=== PATIENT | female | born 1945 | race Caucasian/White ===

== ENCOUNTER 2016-08-20 18:35 | Observation (INO) | payer MEDICARE, BC, OTHER ==
[~2016-08-20] VITALS: Ht 157.5 cm; Wt 65.8 kg
[~2016-08-20 18:35] MED LIST: ACETAMINOPHEN W1 TA6 PO; CLARITIN 1010 MG/TAB PO; FLONASEALLERGY NS; HYZAAR 50-12.1 UDTAB PO; INDERAL 10MG10 MG PO; LISINOPRIL; MIRALAX PA17 GM/Dose PO; PRILOSEC 20MG20 MG PO; PRINZIDE 12.5 M1 TAB PO; ZYLOPRIM 100MG100 MG PO
[2016-08-20] MEDS ORDERED: THEO-24 30300 MG/CAP PO (18:52)
[2016-08-20 19:12] LABS: BASO # 0.1 (0.0-0.2); BASO % 0.7 % (0.0-2.0); EOS # 0.6 (0.0-0.7); EOS % 8.2 % (0-4.0); GRAN % 54.9 % (42.2-75.2); HEMATOCRIT 40.1 % (37.0-47.0); HEMOGLOBIN 13.8 g/dl (12.5-16.0); LYMPH # 1.9 (1.2-3.4); LYMPH % 26.3 % (20.0-51.0); MEAN CELL VOLUME 84 fl (80.0-100.0); MEAN CORPUSCULAR HEMOGLOBIN 29 pg (27.0-31.0); MEAN CORPUSCULAR HGB CONC 34 g/dl (33.0-37.0); MEAN PLATELET VOLUME 9.9 fl (7.4-10.4); MONO # 0.7 (0.1-0.6); MONO % 9.6 % (1.7-9.3); PLATELET COUNT 185 K/mm3 (130-400); RED BLOOD COUNT 4.76 M/mm3 (4.10-5.30); WHITE BLOOD COUNT 7.3 K/mm3 (4.8-10.8)
[2016-08-20 19:22] LABS: ADJUSTED CALCIUM 9.6 mg/dL (8.4-10.2); ALANINE AMINOTRANSFERASE 32 U/L (9-52); ALBUMIN 4.4 gm/dL (3.5-5.0); ALKALINE PHOSPHATASE 97 U/L (50-136); ANION GAP 12 mmol/L (7-16); BILIRUBIN,TOTAL 1.2 mg/dL (0.0-1.0); BLOOD UREA NITROGEN 23 mg/dL (7-17); CALCIUM 9.9 mg/dL (8.4-10.2); CARBON DIOXIDE 28 mmol/L (22-30); CHLORIDE 95 mmol/L (98-107); CREATININE, serum 1.01 mg/dL (0.52-1.25); GLUCOSE 104 mg/dL (74-106); POTASSIUM 3.5 mmol/L (3.4-5.0); SODIUM 135 mmol/L (137-145); TOTAL PROTEIN 7.9 gm/dL (6.4-8.2)
[2016-08-20 19:34] LABS: B-TYPE NATRIURETIC PEPTIDE 69 pg/mL (0-125); TROPONIN-I < 0.012 ng/mL (0.000-0.034)
[2016-08-20 20:12] LABS: THEOPHYLLINE 5.9 ug/mL (10.0-20.0)
[2016-08-21] VITALS (7 sets, daily range): BP systolic 119–155; BP diastolic 58–75; PULSE 71–125; TEMP 97.5–98.4
[2016-08-21 00:53] LABS: MAGNESIUM 1.7 mg/dL (1.6-2.3)
[2016-08-21 07:55] LABS: HEMOGLOBIN 12.2 g/dl (12.5-16.0); MEAN CELL VOLUME 84 fl (80.0-100.0); MEAN CORPUSCULAR HEMOGLOBIN 29 pg (27.0-31.0); MEAN CORPUSCULAR HGB CONC 35 g/dl (33.0-37.0); PLATELET COUNT 176 K/mm3 (130-400); RED BLOOD COUNT 4.18 M/mm3 (4.10-5.30); REDCELL DISTRIBUTION WIDTH-CV 13.1 % (11.5-14.5); WHITE BLOOD COUNT 4.7 K/mm3 (4.8-10.8)
[2016-08-21 08:03] LABS: ADD PATHOLOGY DIFF REVIEW NO; HEMATOCRIT 35.1 % (37.0-47.0)
[2016-08-21 08:05] LABS: CALCIUM 9.6 mg/dL (8.4-10.2); CREATININE, serum 0.95 mg/dL (0.52-1.25); POTASSIUM 3.9 mmol/L (3.4-5.0)
[2016-08-21 08:28] LABS: BAND 4 % (0-10); NEUTROPHILS 86 % (42.0-75.2); PLATELET ESTIMATE NORMAL (NORMAL); TOTAL CELLS COUNTED 100
[2016-08-22 03:18] VITALS: BP 128/57; PULSE 91; TEMP 98.2
[2016-08-22 08:55] VITALS: BP 156/70; PULSE 85; TEMP 98.1
[2016-08-22 11:02] VITALS: BP 130/60; PULSE 83
[2016-08-22] MEDS ORDERED: ZITHROMAX 250M250 MG PO (12:46)
[2016-08-22] MEDS ORDERED: MUCINEX 60600 MG/TA1 PO (12:46)
[2016-08-22] MEDS ORDERED: SINGULAIR 110 MG/TAB PO (12:46)
[2016-08-22] MEDS ORDERED: RT ADVAIR 528 DISKUS IH (12:48)
[2016-08-22] MEDS ORDERED: PREDNISONE20 MG PO (12:49)
[2016-08-22] MEDS ORDERED: PROAIR HFA0.09 MG/AC IH (12:49)
== END 2016-08-22 16:30 | disposition home or self-care (01) ==
LOC: COL.ER 18:35 → MEDICAL 22:56 → COL.ER 23:02 → ICU 23:02 → MEDICAL 08-22 16:30
PROVIDERS: Emergency Medicine; Nurse Practitioner Family
DX: J44.1 Chronic obstructive pulmonary disease with (acute) exacerbation (principal); J45.901 Unspecified asthma with (acute) exacerbation; R00.2 Palpitations; I77.89 Other specified disorders of arteries and arterioles; I28.9 Disease of pulmonary vessels, unspecified; R00.0 Tachycardia, unspecified; I10 Essential (primary) hypertension; Z87.891 Personal history of nicotine dependence
CPT/HCPCS: G0378; G8978-GP; G8979-GP; G8987-GO; G8988-GO; J2920; J2930; J7030; Q9967

== ENCOUNTER → 2016-12-12 | Outpatient (CLI) | payer MEDICARE, OTHER ==
[~2016-12-12] MED LIST changes: +MUCINEX 60600 MG/TA1 PO; +PREDNISONE20 MG PO; +PROAIR HFA0.09 MG/AC IH; +RT ADVAIR 528 DISKUS IH; +SINGULAIR 110 MG/TAB PO; +THEO-24 30300 MG/CAP PO; +ZITHROMAX 250M250 MG PO
== END ==
LOC: MC.RAD 09:31
DX: Z12.31 Encounter for screening mammogram for malignant neoplasm of breast (principal)

== ENCOUNTER → 2018-01-16 | Outpatient (CLI) | payer MEDICARE, BC, OTHER | LOC: MC.RAD 11:13 | DX: Z12.31 Encounter for screening mammogram for malignant neoplasm of breast (principal) ==

== ENCOUNTER 2019-01-02 12:33 | Emergency (ER) | payer MEDICARE, BC, OTHER ==
[~2019-01-02] VITALS: Ht 157.5 cm; Wt 63.6 kg
[2019-01-02 12:41] VITALS: TEMP 97.8
[2019-01-02] MEDS ORDERED: HCTZ12.5TAB PO (13:34)
[2019-01-02] MEDS ORDERED: ZESTRIL 20MG TA20 MG PO (13:36)
[2019-01-02 15:16] LABS: PROTHROMBIN TIME 12.2 SECONDS (9.7-12.8)
[2019-01-02 15:27] LABS: ALBUMIN 4.2 gm/dL (3.5-5.0); BILIRUBIN,TOTAL 0.8 mg/dL (0.0-1.0); CALCIUM 9.3 mg/dL (8.4-10.2); CREATININE, serum 1.03 (0.52-1.25); POTASSIUM 3.7 mmol/L (3.4-5.0); TOTAL PROTEIN 7.4 gm/dL (6.4-8.2)
[2019-01-02 15:28] LABS: BASO % 0.3 % (0.0-2.0); EOS # 0.3 (0.0-0.7); EOS % 4.6 % (0-4.0); GRAN # 3.8 (1.4-6.5); GRAN % 63.7 % (42.2-75.2); HEMATOCRIT 38.4 % (37.0-47.0); LYMPH # 1.4 (1.2-3.4); LYMPH % 23.1 % (20.0-51.0); MEAN CELL VOLUME 88 fl (80.0-100.0); MEAN CORPUSCULAR HEMOGLOBIN 30 pg (27.0-31.0); MEAN CORPUSCULAR HGB CONC 34 g/dl (33.0-37.0); MEAN PLATELET VOLUME 10.1 fl (7.4-10.4); MONO # 0.5 (0.1-0.6); MONO % 7.8 % (1.7-9.3); PLATELET COUNT 182 K/mm3 (130-400); RED BLOOD COUNT 4.39 M/mm3 (4.10-5.30); REDCELL DISTRIBUTION WIDTH-CV 12.9 % (11.5-14.5)
[2019-01-02 16:17] VITALS: BP 156/77; PULSE 67
== END 2019-01-02 16:17 | disposition short-term general hospital (02) ==
LOC: COL.ER 12:33
PROVIDERS: Emergency Medicine
DX: S06.5X0A Traumatic subdural hemorrhage without loss of consciousness, initial encounter (principal); S01.81XA Laceration without foreign body of other part of head, initial encounter; K21.9 Gastro-esophageal reflux disease without esophagitis; I10 Essential (primary) hypertension; J44.9 Chronic obstructive pulmonary disease, unspecified; Z87.891 Personal history of nicotine dependence; Z79.51 Long term (current) use of inhaled steroids; W01.198A Fall on same level from slipping, tripping and stumbling with subsequent striking against other object, initial encounter; Y92.410 Unspecified street and highway as the place of occurrence of the external cause
CPT/HCPCS: J2405; J2550; J3010; J7030

== ENCOUNTER → 2019-01-17 | Outpatient (CLI) | payer MEDICARE, BC, OTHER ==
[~2019-01-17] MED LIST changes: +HCTZ12.5TAB PO; +ZESTRIL 20MG TA20 MG PO
== END ==
LOC: MC.RAD 09:12
DX: Z12.31 Encounter for screening mammogram for malignant neoplasm of breast (principal)

== ENCOUNTER → 2020-01-23 | Outpatient (CLI) | payer MEDICARE, BC, OTHER | LOC: MC.RAD 10:25 | DX: Z12.31 Encounter for screening mammogram for malignant neoplasm of breast (principal) ==

== ENCOUNTER → 2021-02-22 | Outpatient (CLI) | payer MEDICARE, BC, OTHER | LOC: MC.RAD 09:11 | DX: Z12.31 Encounter for screening mammogram for malignant neoplasm of breast (principal) ==

== ENCOUNTER → 2022-02-23 | Outpatient (CLI) | payer MEDICARE, BC | LOC: MC.RAD 09:41 | DX: Z12.31 Encounter for screening mammogram for malignant neoplasm of breast (principal) ==

== ENCOUNTER → 2023-03-15 | Outpatient (CLI) | payer MEDICARE, BC | LOC: CANSCHCLI → MC.RAD 09:29 → COL.RAD 09:45 | DX: Z12.31 Encounter for screening mammogram for malignant neoplasm of breast (principal) ==

== ENCOUNTER → 2024-03-18 | Outpatient (CLI) | payer MEDICARE ==
[~2024-03-18] MED LIST changes: +ELIQUIS 5MG PO; +ENTRESTO 24 MG1 EACH PO; +ENTRESTO 49 MG1 EACH PO; +HCTZ 25MG TAB25 MG PO; +LOVENOX 6060 MG/0.6 SQ; +PACERONE400 MG PO; +RT ADVAIR 228 DISKUS IH; +TIKOSYN0.125 MG PO; +TOPROL XL 50MG50 MG PO; +VOLTAREN GEL 1%1 TU TP
== END ==
LOC: MC.RAD 08:43
DX: Z12.31 Encounter for screening mammogram for malignant neoplasm of breast (principal)